=== PATIENT | female | born 1930 | race Caucasian/White ===

== ENCOUNTER 2017-09-29 19:32 | Inpatient (IN) | payer OTHER ==
[~2017-09-29] VITALS: Ht 142.2 cm; Wt 40.8 kg
[2017-09-29] MEDS ORDERED: CARBIDOPA-LEVO1 EA10 (20:08)
[2017-09-29] MEDS ORDERED: LEVOTHYROXINE25 MCG (20:09)
[2017-09-29] MEDS ORDERED: TOPROL XL25 M1 (20:10)
[2017-09-29] MEDS ORDERED: PROTONIX40 M1 (20:10)
[2017-09-29] MEDS ORDERED: CARBIDOPA-LEVO1 EAC7 (20:11)
[2017-09-29] MEDS ORDERED: MEGESTROL ACETA20 MG (20:11)
== END 2017-10-24 23:57 | disposition expired | DRG 177 ==
LOC: ER 19:32 → SURG 22:16
PROC: 4A033R1 Measurement of Arterial Saturation, Peripheral, Percutaneous Approach (ICD-10-PCS; 2017-09-29)
PROC: BW28ZZZ Computerized Tomography (CT Scan) of Head (ICD-10-PCS; 2017-09-29)
PROC: 05H633Z Insertion of Infusion Device into Left Subclavian Vein, Percutaneous Approach (ICD-10-PCS; 2017-10-01)
PROC: 3E0436Z Introduction of Nutritional Substance into Central Vein, Percutaneous Approach (ICD-10-PCS; 2017-10-02)
PROC: 30233N1 Transfusion of Nonautologous Red Blood Cells into Peripheral Vein, Percutaneous Approach (ICD-10-PCS; 2017-10-07)
PROC: CP1Z1ZZ Planar Nuclear Medicine Imaging of Musculoskeletal System, All using Technetium 99m (Tc-99m) (ICD-10-PCS; 2017-10-07)
PROC: 3E0F7GC Introduction of Other Therapeutic Substance into Respiratory Tract, Via Natural or Artificial Opening (ICD-10-PCS; 2017-10-10)
PROC: BB24ZZZ Computerized Tomography (CT Scan) of Bilateral Lungs (ICD-10-PCS; 2017-10-10)
PROC: CW1NLZZ Planar Nuclear Medicine Imaging of Whole Body using Gallium 67 (Ga-67) (ICD-10-PCS; 2017-10-10)
PROC: 0DH63UZ Insertion of Feeding Device into Stomach, Percutaneous Approach (ICD-10-PCS; principal; 2017-10-23)
DX: J69.0 Pneumonitis due to inhalation of food and vomit (principal); G92 Toxic encephalopathy; N39.0 Urinary tract infection, site not specified; N17.8 Other acute kidney failure; G20 Parkinson's disease; F02.80 Dementia in other diseases classified elsewhere, unspecified severity, without behavioral disturbance, psychotic disturbance, mood disturbance, and anxiety; Z74.01 Bed confinement status; L89.152 Pressure ulcer of sacral region, stage 2; E86.0 Dehydration; B96.4 Proteus (mirabilis) (morganii) as the cause of diseases classified elsewhere; B96.1 Klebsiella pneumoniae [K. pneumoniae] as the cause of diseases classified elsewhere; B96.29 Other Escherichia coli [E. coli] as the cause of diseases classified elsewhere; B95.61 Methicillin susceptible Staphylococcus aureus infection as the cause of diseases classified elsewhere; B95.2 Enterococcus as the cause of diseases classified elsewhere; B37.2 Candidiasis of skin and nail; N18.3 Chronic kidney disease, stage 3 (moderate); B96.6 Bacteroides fragilis [B. fragilis] as the cause of diseases classified elsewhere; R13.19 Other dysphagia; Z66 Do not resuscitate; R54 Age-related physical debility; D50.8 Other iron deficiency anemias